=== PATIENT | female | born 2000 | race Caucasian/White ===

== ENCOUNTER 2022-05-28 23:41 | Emergency (ER) | payer MEDICAID ==
[~2022-05-28] VITALS: Ht 165.1 cm; Wt 56.7 kg
[2022-05-28 23:41] VITALS: BP 138/78
--- NOTE | 2022-05-28 23:44 | NUR ---
PT [facility]. TAKEN TO BED 7
--- NOTE | 2022-05-28 23:46 | NUR ---
Dr. Balbuena examining patient.
--- NOTE | 2022-05-29 00:03 | NUR ---
Patient resting in bed, A/Ox4, chest rise and fall symmetrical, no c/o pain or s/s of distress. Patient in gown, all belongings removed, labelled, and given to security.
--- NOTE | 2022-05-29 00:10 | NUR ---
[facility] [place] [facility] called at , staff member Francine, verbally informed patient ingested 27 pills of 20 mg Prozac and 1 bottle of wine. [facility] staff member Francine ordered; monitor for respiratory depression and [employer] depression, repeat EKG in 4 hrs, draw tylenol/Salicylates/CMP/MAG/Ethenol, if QTC greater than 500 optimize MAG and calcium and potassium, and give supportive care and monitor for 6 hrs. [facility] staff member Francine verbally confirmed readback of orders. Dr. Balbuena verbally informed of orders from [facility] staff member Francine. Dr. Balbuena verbalized understanding.
[2022-05-29 00:13] LABS: BASOPHILS # (AUTO) 0.1 K/uL (0.00-0.22); BASOPHILS % (AUTO) 0.6 % (0.0-2.0); EOSINOPHILS % (AUTO) 0.3 % (0.0-4.0); HEMATOCRIT 40.8 % (36-48); HEMOGLOBIN 13.7 g/dL (12.0-16.0); LYMPHOCYTES # (AUTO) 1.2 K/uL (2.5-16.5); LYMPHOCYTES % (AUTO) 12.9 % (20.5-51.1); MEAN CORPUSCULAR HEMOGLOBIN 30 pg (27-31); MEAN CORPUSCULAR HGB CONC 33 g/dL (33-37); MEAN CORPUSCULAR VOLUME 90.1 fL (80-94); MONOCYTES # (AUTO) 0.3 K/uL (0.8-1.0); MONOCYTES % (AUTO) 2.7 % (1.7-9.3); NEUTROPHILS # (AUTO) 8.1 K/uL (1.8-7.7); NEUTROPHILS % (AUTO) 83.5 % (42.2-75.2); PLATELET COUNT (AUTO) 252 K/uL (140-450); RED BLOOD CELL COUNT(AUTO) 4.53 MIL/uL (4.20-5.40); RED CELL DISTRIBUTION WIDTH 12.6 % (11.6-13.7); WHITE BLOOD COUNT (AUTO) 9.7 K/uL (4.8-10.8)
[2022-05-29 00:31] LABS: APPEARANCE,URINE CLEAR (CLEAR); BILIRUBIN,URINE NEGATIVE (NEGATIVE); BLOOD, URINE TRACE-I (NEGATIVE); COLOR,URINE YELLOW (YELLOW); LEUKOCYTE ESTERASE ,URINE NEGATIVE (NEGATIVE); NITRITE, URINE NEGATIVE (NEGATIVE); PH,URINE 5.5 (5.0-9.0); UGLUCOSE TRACE (NEGATIVE)
[2022-05-29 00:33] LABS: ALBUMIN 4.6 g/dL (3.4-5.0); ANION GAP 21.9 (8-16); ASPARTATE AMINOTRANSFERASE 21 U/L (15-37); CARBON DIOXIDE 18.6 mmol/L (21-32); CHLORIDE 102 mmol/L (98-107); CREATININE 0.7 mg/dL (0.6-1.3); GFR ARICAN-AMERICAN 136 mL/min (>90); GLUCOSE 102 mg/dL (74-106); POTASSIUM 3.5 mmol/L (3.5-5.1); SALICYLATE < 2.8 mg/dL (2.8-20.0); SODIUM SERUM 139 mmol/L (136-145); TOTAL BILIRUBIN 0.6 mg/dL (0.0-1.0); UREA NITROGEN, BLOOD 13 mg/dL (7-18)
[2022-05-29 00:34] LABS: ACETAMINOPHEN < 0.5 ug/ml (10-30)
[2022-05-29 00:40] LABS: RBC,URINE 0-5 /HPF (0-5); WBC,URINE 0-5 /HPF (0-5)
[2022-05-29 00:41] LABS: BARBITURATE, URINE NEGATIVE ng/ml (NEG <=200); BENZODIAZEPINE, URINE NEGATIVE ng/mL (NEG <=200); CANNABINOID, URINE NEGATIVE ng/mL (NEG <=50); COCAINE, URINE NEGATIVE ng/mL (NEG <=300); OPIATE, URINE NEGATIVE ng/mL (NEG <=2000); PHENCYCLIDINE SCREEN,URINE NEGATIVE ng/mL (NEG <=25)
--- NOTE | 2022-05-29 00:50 | NUR ---
Note joyce in ED - 05/29/22 at 0056 by [email or web address] Patient resting in bed, A/Ox4, chest rise and fall symmetrical, no c/o pain or s/s of distress. Patient in gown, all belongings removed, labelled, and given to security.
--- NOTE | 2022-05-29 00:56 | NUR ---
Patient resting in bed, A/Ox4, chest rise and fall symmetrical, no c/o pain or s/s of distress, patient on monitor.
--- NOTE | 2022-05-29 01:21 | NUR ---
[place] [facility] AT BEDSIDE
--- NOTE | 2022-05-29 01:50 | NUR ---
PT PLACED ON 5150 HOLD BY BURNT CABINS
--- NOTE | 2022-05-29 07:23 | NUR ---
Received report from HILARIA Malone for transfer of care.
--- NOTE | 2022-05-29 07:23 | NUR ---
Change of shift given to AM shift nurse Gita. AM shift nurse Gita verbalized understanding of report, no further questions.
--- NOTE | 2022-05-29 07:50 | NUR ---
Patient was offered breakfast tray, patient is sitting up eating breakfast.
--- NOTE | 2022-05-29 08:06 | NUR ---
Dr. Morales evaluating patient at bedside.
--- NOTE | 2022-05-29 08:15 | NUR ---
Ezio cook in ED - 05/29/22 at 0816 by BARBARA Up to to do repeat bloodwork. Case closing per Gerard at [facility]
--- NOTE | 2022-05-29 08:16 | NUR ---
Recieved a phone call from Gerard at [facility]. Updated her on patients status. Per Gerard, it is up to doctor if he wants to do repeat bloodwork. Patient's case for Poison Control is now closed. Informed Dr. Morales.
--- NOTE | 2022-05-29 09:05 | NUR ---
Patient ambulated to restroom with steady gait.
--- NOTE | 2022-05-29 11:01 | NUR ---
Patient is laying in bed, respirations even and unlabored. Frequent visual checks being made. Patient is being closely monitored.
--- NOTE | 2022-05-29 11:57 | NUR ---
Patient was offered lunch tray. Left tray at bedside.
--- NOTE | 2022-05-29 13:54 | NUR ---
Patient is laying in bed, respirations even and unlabored. Frequent visual checks being made.
--- NOTE | 2022-05-29 14:58 | NUR ---
Patient is sitting up eating lunch tray.
--- NOTE | 2022-05-29 15:15 | NUR ---
Spoke to Lauren [facility]. Patient is accepted by Dr. Kilpatrick at [address]. Transportation anytime after 6 PM.
--- NOTE | 2022-05-29 15:31 | NUR ---
Updated patients mom on patients transfer as requested by patient.
--- NOTE | 2022-05-29 17:22 | NUR ---
Patient is sitting up on bed, respitations even and unlabored. Frequent visual checks being made.
--- NOTE | 2022-05-29 18:12 | NUR ---
[facility] AT BEDSIDE FOR TRANSPORT
--- NOTE | 2022-05-29 18:14 | NUR ---
Mother brought 2 bags of clothes.
[2022-05-29 18:20] VITALS: BP 142/88
--- NOTE | 2022-05-29 18:20 | NUR ---
Patient to be transferred to [facility]. Is being transferred due to Higher Level of Care. Receiving facility has accepting physician and available space. ER physician has signed transfer form. Patient or responsible republican has agreed to transfer and signed form. Patient belongings inventoried and will be sent with patient. Copy of nursing notes, lab reports, EKG, Physicians Orders and X-rays to be sent with patient. Report called to Lauren at receiving facility. [facility] ambulance service has been called for transfer. ETA is now.
--- NOTE | 2022-05-29 18:21 | NUR ---
The patient's care was reviewed and supervised by Ema Cleary RN.
== END 2022-05-29 18:20 ==
LOC: MED 23:41
DX: T43.222A Poisoning by selective serotonin reuptake inhibitors, intentional self-harm, initial encounter (principal); Z20.822 Contact with and (suspected) exposure to COVID-19; F10.129 Alcohol abuse with intoxication, unspecified; Y92.89 Other specified places as the place of occurrence of the external cause
CPT/HCPCS: 36415; 80053; 80305; 81001; 81025; 83735; 85025; 87086; 87426; 87635; 93005; 99291; C9803; G0480; G0482